=== PATIENT | male | born 1955 | race Native Hawaiian/Other Pacific Islander ===

== ENCOUNTER 2017-12-11 05:58 | Outpatient (CLI) | payer OTHER ==
[~2017-12-11 05:58] MED LIST: ACET7.5T70 PO; ADIPEX PO; ALBU90AE13 INH; ALBUTERO1; ALPR1TAB61; ALPR1TAB61 PO; CELEXA10 MG; CELEXA10 MG OR; CIPRO500 MG PO; FURO40TA93; FURO40TA93 OR; GABA300C2 PO; HYDR25TA60 PO; IBUP800T30; IBUP800T30 OR; LOPRESSOR50 MG; LOPRESSOR50 MG OR; POT CHLORIDE; POTASSIUM CHLO20 MEQ OR; RANI150T78 PO; ZOLP10TA2 PO
== END 2017-12-11 06:09 | disposition short-term general hospital (02) ==
LOC: AMB 05:58
DX: R10.13 Epigastric pain (principal)
CPT/HCPCS: A0425; A0427

== ENCOUNTER 2017-12-11 07:14 | Observation (INO) | payer OTHER ==
[~2017-12-11] VITALS: Ht 180.3 cm; Wt 134.3 kg
[2017-12-11 07:21] VITALS: BP 191/101
[2017-12-11 07:28] VITALS: TEMP 97.3
[2017-12-11 07:49] LABS: PLATELET COUNT 153 K/uL (142-355)
[2017-12-11 07:50] LABS: POTASSIUM 4.7 mmol/L (3.6-5.2)
[2017-12-11 15:20] VITALS: BP 167/87; TEMP 97.9; Ht 180.3 cm; Wt 134.3 kg
[2017-12-11 16:20] VITALS: BP 167/87; TEMP 97.9
[2017-12-11 20:00] VITALS: BP 150/81; TEMP 97.9
[2017-12-11 23:44] VITALS: BP 129/66; TEMP 98.4
[2017-12-12] VITALS (10 sets, daily range): BP systolic 108–163; BP diastolic 48–88; TEMP 98.1–98.5
[2017-12-12 06:28] LABS: PLATELET COUNT 136 K/uL (142-355)
[2017-12-12 06:44] LABS: POTASSIUM 3.6 mmol/L (3.6-5.2)
[2017-12-13] VITALS: BP 158/82; TEMP 98.4
[2017-12-13 04:11] VITALS: BP 134/77; TEMP 98.4
[2017-12-13 05:26] LABS: PLATELET COUNT 146 K/uL (142-355)
[2017-12-13 05:48] LABS: POTASSIUM 3.7 mmol/L (3.6-5.2)
[2017-12-13 08:00] VITALS: BP 168/84; TEMP 97.8
== END 2017-12-13 10:55 | disposition home or self-care (01) ==
LOC: ED 07:14 → MED/SURG 13:48
PROVIDERS: Internal Medicine; ADMIT Family Medicine
PROC: 0FT44ZZ Resection of Gallbladder, Percutaneous Endoscopic Approach (ICD-10-PCS; principal; 2017-12-12)
DX: K80.12 Calculus of gallbladder with acute and chronic cholecystitis without obstruction (principal); J44.9 Chronic obstructive pulmonary disease, unspecified; K21.9 Gastro-esophageal reflux disease without esophagitis; I10 Essential (primary) hypertension; E66.01 Morbid (severe) obesity due to excess calories; Z68.44 Body mass index [BMI] 60.0-69.9, adult; F15.10 Other stimulant abuse, uncomplicated
CPT/HCPCS: 80053; 80307; 81000; 82150; 83690; 84153; 85027; 96374; 96375; 99220; 99284; G0378; J0132; J0295; J0330; J1100; J1170; J1885; J2001; J2060; J2175; J2250; J2270; J2405; J2704; J2710; J3010; J3490; Q9963

== ENCOUNTER 2019-09-27 12:41 | Outpatient (CLI) | payer OTHER ==
[2019-09-27 14:02] LABS: POTASSIUM 4.2 mmol/L (3.6-5.2)
[2019-09-27 14:08] LABS: PLATELET COUNT 175 K/uL (142-355)
[2019-09-27 14:28] LABS: PARTIAL THROMBOPLASTIN TIME 21.8 SECONDS (24.5-33.6)
== END 2019-09-27 21:11 | disposition home or self-care (01) ==
LOC: RAD 12:41
PROVIDERS: Family Medicine
DX: D50.9 Iron deficiency anemia, unspecified (principal); R06.02 Shortness of breath; R58 Hemorrhage, not elsewhere classified; Z68.43 Body mass index [BMI] 50.0-59.9, adult; M54.9 Dorsalgia, unspecified; R05 Cough; I11.9 Hypertensive heart disease without heart failure
CPT/HCPCS: 36415; 80053; 83540; 83550; 85027; 85610; 85730

== ENCOUNTER 2019-09-30 22:27 | Emergency (ER) | payer OTHER ==
[~2019-09-30] VITALS: Ht 180.3 cm; Wt 170.1 kg
[2019-09-30 23:21] LABS: PLATELET COUNT 175 K/uL (142-355)
[2019-09-30 23:28] LABS: POTASSIUM 3.7 mmol/L (3.6-5.2)
[2019-10-01 00:20] VITALS: BP 156/62; TEMP 99.1
== END 2019-10-01 00:20 | disposition home or self-care (01) ==
LOC: ED 22:27
PROVIDERS: Hospitalist
PROC: 0T9B70Z Drainage of Bladder with Drainage Device, Via Natural or Artificial Opening (ICD-10-PCS; principal; 2019-09-30)
DX: N32.0 Bladder-neck obstruction (principal); R33.8 Other retention of urine; D64.89 Other specified anemias
CPT/HCPCS: 36415; 80048; 81000; 85007; 85027; 96372; 99283; J0696; J1885

== ENCOUNTER 2019-10-10 21:29 | Emergency (ER) | payer OTHER ==
[~2019-10-10] VITALS: Ht 180.3 cm; Wt 170.1 kg
[2019-10-10 22:24] LABS: PLATELET COUNT 190 K/uL (142-355)
[2019-10-10 22:29] LABS: POTASSIUM 4.8 mmol/L (3.6-5.2)
[2019-10-11 03:52] VITALS: BP 129/74; TEMP 98.1
[2019-10-12] MEDS ORDERED: CIPR500T PO ×2 (10:29)
[2019-10-12] MEDS ORDERED: TAMSULOSIN0.4 MG PO ×2 (10:29)
[2019-10-12] MEDS ORDERED: TYLENOL/COD PO ×2 (10:32)
[2019-10-12] MEDS ORDERED: NITROFURANTOIN100 M1 PO ×2 (10:33)
[2019-10-12] MEDS ORDERED: FURO40TA93 PO ×2 (12:43)
[2019-10-12] MEDS ORDERED: LEVAQUIN250 MG PO ×2 (12:43)
[2019-10-12] MEDS ORDERED: POTASSIUM CHLO10 MEQ PO ×2 (12:44)
[2019-10-12] MEDS ORDERED: ALBU0.0813 INH ×2 (12:46)
[2019-10-12] MEDS ORDERED: BUDE1AER5 INH ×2 (12:46)
== END 2019-10-11 03:53 | disposition home or self-care (01) ==
LOC: ED 21:29
PROVIDERS: Emergency Medicine
DX: I50.9 Heart failure, unspecified (principal); D64.89 Other specified anemias; Z20.828 Contact with and (suspected) exposure to other viral communicable diseases
CPT/HCPCS: 36415; 80053; 82550; 82553; 83605; 83880; 84484; 85007; 85027; 87040; 87635; 93005; 96374; 96375; 99284; G2023; J1940; J2930; U0003

== ENCOUNTER 2019-10-11 03:00 | Observation (INO) | payer OTHER ==
[~2019-10-11] VITALS: Ht 180.3 cm; Wt 192.5 kg
[2019-10-11 04:45] VITALS: BP 153/75; TEMP 98.5; Ht 180.3 cm; Wt 192.5 kg
[2019-10-11 08:00] VITALS: BP 158/93; TEMP 98.7
[2019-10-11 12:00] VITALS: BP 106/64; TEMP 98.5
[2019-10-11 16:00] VITALS: BP 119/41; TEMP 98.7
--- NOTE | 2019-10-11 18:02 | NUR ---
AT 1745 WENT TO SPEAK WITH PT. ABOUT BRINGING HIS HOME CPAP TO WEAR AT [facility]. THAT THE DR. KENDALL WANTED HIM TO WEAR IT. HE SAID HE HAD ONE FOR 20 YEARS AND DID EAR IT AND HE WOULD NOT WEAR NOW. PT IS ON 2LNC. SPOKE TALKING TO PT WENT TO DR. KENDALL AND TOLD HER WHAT PT. SAID. SHE SAID OK JUST TRY TO MAKE SURE HE WILL KEEP HIS OS ON.
[2019-10-11 19:53] VITALS: BP 143/65; TEMP 98
[2019-10-12 00:17] VITALS: BP 145/58; TEMP 98.4
[2019-10-12 04:00] VITALS: BP 136/60; TEMP 98.4
[2019-10-12 08:00] VITALS: BP 158/78; TEMP 98.7
[2019-10-12] MEDS ORDERED: CIPR500T PO ×2 (10:29)
[2019-10-12] MEDS ORDERED: TAMSULOSIN0.4 MG PO ×2 (10:29)
[2019-10-12] MEDS ORDERED: TYLENOL/COD PO ×2 (10:32)
[2019-10-12] MEDS ORDERED: NITROFURANTOIN100 M1 PO ×2 (10:33)
[2019-10-12 12:00] VITALS: BP 165/62; TEMP 98
[2019-10-12] MEDS ORDERED: LEVAQUIN250 MG PO ×2 (12:43)
[2019-10-12] MEDS ORDERED: FURO40TA93 PO ×2 (12:43)
[2019-10-12] MEDS ORDERED: POTASSIUM CHLO10 MEQ PO ×2 (12:44)
[2019-10-12] MEDS ORDERED: BUDE1AER5 INH ×2 (12:46)
[2019-10-12] MEDS ORDERED: ALBU0.0813 INH ×2 (12:46)
--- NOTE | 2019-10-12 16:30 | NUR ---
SPOKE WITH [facility] AT 1320 TO ARRANGE TRANSPORT FOR THIS PATIENT TO [facility] IN [facility]. REF #[id number] SOME ONE WILL BE HERE BETWEEN 30 MIN TO 3 HOURS WITH 3 HOURS BEING 1630.
--- NOTE | 2019-10-12 19:45 | NUR ---
TRANSPORT "[facility]" HERE TO TAKE PATIENT TO [place] [facility]. TRANSPORT TOOK AND THEY WILL RETURN TANK # [id number]. PATIENT LEFT IN NO ACUTE DISTRESS.
== END 2019-10-12 19:50 ==
LOC: MED/SURG 03:00
PROVIDERS: ADMIT Internal Medicine
DX: R06.09 Other forms of dyspnea (principal); E66.01 Morbid (severe) obesity due to excess calories; Z68.43 Body mass index [BMI] 50.0-59.9, adult; Z71.3 Dietary counseling and surveillance; J44.9 Chronic obstructive pulmonary disease, unspecified; I10 Essential (primary) hypertension; R62.7 Adult failure to thrive; Z79.891 Long term (current) use of opiate analgesic
CPT/HCPCS: 80307; 84484; 94760; 96365; 96372; 96374; 96375; 99220; G0378; G0379; J1650; J1940; J1956; J2310

== ENCOUNTER 2019-11-25 08:34 | Emergency (ER) | payer OTHER ==
[~2019-11-25] VITALS: Ht 180.3 cm; Wt 174.2 kg
[~2019-11-25 08:34] MED LIST changes: +ALBU0.0813 INH; +BUDE1AER5 INH; +CIPR500T PO; +FURO40TA93 PO; +LEVAQUIN250 MG PO; +NITROFURANTOIN100 M1 PO; +POTASSIUM CHLO10 MEQ PO; +TAMSULOSIN0.4 MG PO; +TYLENOL/COD PO
[2019-11-25 08:39] VITALS: TEMP 98.7
[2019-11-25] MEDS ORDERED: METO25TA2 PO (08:55)
[2019-11-25] MEDS ORDERED: DOCU100C10 PO (08:56)
[2019-11-25] MEDS ORDERED: IRON CHEWS PO (08:58)
[2019-11-25 10:06] VITALS: BP 168/74
== END 2019-11-25 10:06 | disposition home or self-care (01) ==
LOC: ED 08:34
DX: M25.562 Pain in left knee (principal); M17.12 Unilateral primary osteoarthritis, left knee; S82.092A Other fracture of left patella, initial encounter for closed fracture; W08.XXXA Fall from other furniture, initial encounter; Y92.89 Other specified places as the place of occurrence of the external cause
CPT/HCPCS: 96372; 99283; J1170; J1885; J2405; J2930